=== PATIENT | male | born 1970 ===

== ENCOUNTER 2020-11-25 19:08 | Inpatient (IN) | payer OTHER ==
[~2020-11-25] VITALS: Ht 172.7 cm; Wt 109.2 kg
[2020-11-25 20:01] LABS: COVID AG,FIA SOURCE NASOPHARYNGEAL
[2020-11-25 20:59] LABS: BASOPHILS % (AUTO) 0.4 % (0.0-2.0); EOSINOPHILS % (AUTO) 0.3 % (1.0-6.0); HEMATOCRIT 52.6 % (41-53); HEMOGLOBIN 17.4 g/dL (13.5-17.5); LYMPHOCYTES # (AUTO) 1.1 K/uL (1.0-4.8); LYMPHOCYTES % (AUTO) 16.4 % (22.0-44.0); MEAN CORPUSCULAR HGB CONC 33.1 G/dL (31.0-37.0); MEAN CORPUSCULAR VOLUME 94 fL (80-100); MONOCYTES % (AUTO) 14.5 % (2.0-9.0); NEUTROPHILS # (AUTO) 4.6 K/uL (1.8-7.7); NEUTROPHILS % (AUTO) 68.4 % (40.0-70.0); PLATELET COUNT (AUTO) 233 K/uL (150-450); RED BLOOD CELL COUNT(AUTO) 5.61 MIL/uL (4.50-5.90); RED CELL DISTRIBUTION WIDTH 14.5 % (11.5-14.5)
[2020-11-25] MEDS ORDERED: MAGNESIUM HYDROXIDE SUSPENSION 30 ML UDCUP PO PRN (21:00)
[2020-11-25 21:10] LABS: ANION GAP 11 mmol/L (8-16); CALCIUM, TOTAL 8.8 mg/dL (8.8-10.5); CARBON DIOXIDE 30 mmol/L (22-29); CHLORIDE 97 mmol/L (98-107); CREATININE 1.22 mg/dL (0.60-1.30); GLOMERULAR FILTR. RATE CALC > 60 mL/min (>60); GLUCOSE,RANDOM 130 mg/dL (70-110); POTASSIUM 3.9 mmol/L (3.5-5.1); SODIUM SERUM 138 mmol/L (136-145); UREA NITROGEN, BLOOD 10 mg/dL (7-18)
[2020-11-25 21:12] LABS: D-DIMER 0.82 mg/L FEU (0.00-0.50); PROTHROMBIN TIME 10.9 SEC (9.4-11.6)
[2020-11-25 21:35] LABS: LACTIC ACID 3.8 mmol/L (0.4-2.0)
[2020-11-25 21:36] LABS: ALANINE AMINOTRANSFERASE 127 U/L (12-78); ALBUMIN 4.3 g/dL (3.4-5.0); ALKALINE PHOSPHATASE 117 U/L (46-116); ASPARTATE AMINOTRANSFERASE 79 U/L (15-37); BILIRUBIN,TOTAL 0.6 mg/dL (0.1-1.0); CREATINE KINASE, TOTAL ONLY 129 U/L (39-308); FERRITIN 757 ng/mL (26-388); LACTATE DEHYDROGENASE 188 U/L (85-227); PHOSPHORUS 3.8 mg/dL (2.5-4.9); TOTAL PROTEIN, SERUM 9.4 g/dL (6.4-8.2)
[2020-11-25 21:44] VITALS: BP 121/80
[2020-11-25] MEDS ORDERED: SODIUM CHLORIDE 0.9% 1,000 ML IV ONE (21:45)
[2020-11-25] MEDS: ACETAMINOPHEN 325 MG TABLET PO PRN (21:49)
[2020-11-25 22:10] LABS: ERYTHROCYTE SEDIMENTATION RATE 6 MM/HR (0-15)
[2020-11-25] MEDS: HEPARIN SODIUM,PORCINE 5,000 UNITS/ML VIAL SQ SCH (23:44)
[2020-11-26] MEDS: ACETAMINOPHEN 325 MG TABLET PO PRN ×3 (04:43→20:41)
[2020-11-26 05:14] VITALS: BP 147/93
[2020-11-26 08:23] VITALS: BP 158/92
[2020-11-26] MEDS: FAMOTIDINE 20 MG TABLET PO SCH (08:53)
[2020-11-26] MEDS: HEPARIN SODIUM,PORCINE 5,000 UNITS/ML VIAL SQ SCH ×3 (08:53→23:51)
[2020-11-26 09:49] LABS: APPEARANCE,URINE CLEAR (CLEAR); BILIRUBIN,URINE NEGATIVE (NEGATIVE); GLUCOSE, URINE (UA) NEGATIVE (NEGATIVE); KETONES,URINE TRACE mg/dL (NEGATIVE); LEUKOCYTE ESTERASE ,URINE NEGATIVE (NEGATIVE); NITRATE,URINE NEGATIVE (NEGATIVE); OCCULT BLOOD,URINE NEGATIVE (NEGATIVE); PROTEIN,URINE NEGATIVE (NEGATIVE)
[2020-11-26 09:52] LABS: BACTERIA,URINE None Seen /HPF (None Seen); RBC,URINE None Seen /HPF (0-2); WBC,URINE None Seen /HPF (0-5)
[2020-11-26] MEDS: AZITHROMYCIN 500 MG/NS 250 ML IV SCH (10:09)
[2020-11-26] MEDS ORDERED: SODIUM CHLORIDE 0.9% 500 ML IV ONE (10:12)
[2020-11-26] MEDS: CefTRIAXone 1 GM/DEXTROSE 50 ML IV SCH (11:04)
[2020-11-26 16:28] VITALS: BP 129/79
[2020-11-26 20:36] VITALS: BP 142/94
[2020-11-26 22:00] VITALS: BP 111/74
[2020-11-26 23:41] VITALS: BP 126/78
[2020-11-27] MEDS: ACETAMINOPHEN 325 MG TABLET PO PRN ×4 (00:08→21:07)
[2020-11-27 05:00] VITALS: BP 145/86
[2020-11-27 08:03] VITALS: BP 121/75
[2020-11-27 08:04] VITALS: BP 121/75
[2020-11-27] MEDS: FAMOTIDINE 20 MG TABLET PO SCH (08:47)
[2020-11-27] MEDS: HEPARIN SODIUM,PORCINE 5,000 UNITS/ML VIAL SQ SCH ×2 (08:47→16:04)
[2020-11-27] MEDS: AZITHROMYCIN 500 MG/NS 250 ML IV SCH (10:02)
[2020-11-27] MEDS: CefTRIAXone 1 GM/DEXTROSE 50 ML IV SCH (11:17)
[2020-11-27 11:58] LABS: BASOPHILS % (AUTO) 1.1 % (0.0-2.0); EOSINOPHILS % (AUTO) 0 % (1.0-6.0); HEMATOCRIT 46.1 % (41-53); HEMOGLOBIN 15.6 g/dL (13.5-17.5); LYMPHOCYTES # (AUTO) 0.8 K/uL (1.0-4.8); MEAN CORPUSCULAR HEMOGLOBIN 31.3 pg (26.0-34.0); MEAN CORPUSCULAR HGB CONC 33.9 G/dL (31.0-37.0); MEAN CORPUSCULAR VOLUME 92 fL (80-100); MONOCYTES # (AUTO) 0.6 K/uL (0.1-1.0); MONOCYTES % (AUTO) 11.8 % (2.0-9.0); NEUTROPHILS # (AUTO) 3.7 K/uL (1.8-7.7); NEUTROPHILS % (AUTO) 72.1 % (40.0-70.0); PLATELET COUNT (AUTO) 178 K/uL (150-450); RED CELL DISTRIBUTION WIDTH 13.7 % (11.5-14.5)
[2020-11-27 12:21] LABS: ALANINE AMINOTRANSFERASE 105 U/L (12-78); ALBUMIN 3.6 g/dL (3.4-5.0); ALKALINE PHOSPHATASE 88 U/L (46-116); ANION GAP 8 mmol/L (8-16); ASPARTATE AMINOTRANSFERASE 82 U/L (15-37); BILIRUBIN,TOTAL 0.4 mg/dL (0.1-1.0); C-REACTIVE PROTEIN QUANT 1.85 mg/dL (0.00-0.30); CALCIUM, TOTAL 8.2 mg/dL (8.8-10.5); CARBON DIOXIDE 27 mmol/L (22-29); CHLORIDE 100 mmol/L (98-107); CREATININE 0.96 mg/dL (0.60-1.30); GLOMERULAR FILTR. RATE CALC > 60 mL/min (>60); GLUCOSE,RANDOM 108 mg/dL (70-110); POTASSIUM 3.6 mmol/L (3.5-5.1); SODIUM SERUM 135 mmol/L (136-145); TOTAL PROTEIN, SERUM 7.4 g/dL (6.4-8.2); UREA NITROGEN, BLOOD 9 mg/dL (7-18)
[2020-11-27 14:37] LABS: FERRITIN 873 ng/mL (26-388)
[2020-11-27 14:55] LABS: INFLUENZA TYPE A NEGATIVE FOR TYPE A (NEGATIVE); INFLUENZA TYPE B NEGATIVE FOR TYPE B (NEGATIVE)
[2020-11-27 20:05] VITALS: BP 128/85
[2020-11-28] VITALS: BP 127/74
[2020-11-28] MEDS: HEPARIN SODIUM,PORCINE 5,000 UNITS/ML VIAL SQ SCH ×3 (00:24→16:50)
[2020-11-28] MEDS: ACETAMINOPHEN 325 MG TABLET PO PRN ×3 (00:24→20:39)
[2020-11-28 04:50] VITALS: BP 123/86
[2020-11-28 07:42] VITALS: BP 137/86
[2020-11-28] MEDS: AZITHROMYCIN 500 MG/NS 250 ML IV SCH (08:30)
[2020-11-28] MEDS: FAMOTIDINE 20 MG TABLET PO SCH (08:30)
[2020-11-28] MEDS: CefTRIAXone 1 GM/DEXTROSE 50 ML IV SCH (11:19)
[2020-11-28 20:15] VITALS: BP 135/73
[2020-11-29] VITALS (11 sets, daily range): BP systolic 117–137; BP diastolic 64–82
[2020-11-29] MEDS: ACETAMINOPHEN 325 MG TABLET PO PRN ×6 (00:32→22:57)
[2020-11-29] MEDS: HEPARIN SODIUM,PORCINE 5,000 UNITS/ML VIAL SQ SCH ×4 (00:32→22:57)
[2020-11-29 07:04] LABS: GLUCOMETER DEV NAME(LOC) 6N.1; GLUCOSE,POINT OF CARE 250 MG/DL (70-110)
[2020-11-29 07:16] LABS: ALANINE AMINOTRANSFERASE 95 U/L (12-78); ALBUMIN 3.6 g/dL (3.4-5.0); ALKALINE PHOSPHATASE 82 U/L (46-116); ANION GAP 6 mmol/L (8-16); ASPARTATE AMINOTRANSFERASE 84 U/L (15-37); BILIRUBIN,TOTAL 0.4 mg/dL (0.1-1.0); C-REACTIVE PROTEIN QUANT 2.76 mg/dL (0.00-0.30); CALCIUM, TOTAL 8.6 mg/dL (8.8-10.5); CARBON DIOXIDE 30 mmol/L (22-29); CHLORIDE 98 mmol/L (98-107); CREATININE 1.06 mg/dL (0.60-1.30); FERRITIN 1299 ng/mL (26-388); GLOMERULAR FILTR. RATE CALC > 60 mL/min (>60); GLUCOSE,RANDOM 114 mg/dL (70-110); POTASSIUM 4.5 mmol/L (3.5-5.1); SODIUM SERUM 134 mmol/L (136-145); TOTAL PROTEIN, SERUM 7.8 g/dL (6.4-8.2); UREA NITROGEN, BLOOD 11 mg/dL (7-18)
[2020-11-29] MEDS: FAMOTIDINE 20 MG TABLET PO SCH (10:12)
[2020-11-29] MEDS: AZITHROMYCIN 500 MG/NS 250 ML IV SCH (10:12)
[2020-11-29] MEDS: CefTRIAXone 1 GM/DEXTROSE 50 ML IV SCH (11:54)
[2020-11-29] MEDS ORDERED: REMDESIVIR 200 MG in SODIUM CHLORIDE 0.9% 250 ML IV ONE (15:30)
[2020-11-30] MEDS: ACETAMINOPHEN 325 MG TABLET PO PRN ×2 (04:03→16:58)
[2020-11-30 04:05] VITALS: BP 119/73
[2020-11-30 06:00] LABS: BASOPHILS % (AUTO) 0.2 % (0.0-2.0); EOSINOPHILS % (AUTO) 0 % (1.0-6.0); HEMATOCRIT 45.2 % (41-53); HEMOGLOBIN 15.4 g/dL (13.5-17.5); LYMPHOCYTES # (AUTO) 1.1 K/uL (1.0-4.8); LYMPHOCYTES % (AUTO) 11.7 % (22.0-44.0); MEAN CORPUSCULAR HEMOGLOBIN 31.1 pg (26.0-34.0); MEAN CORPUSCULAR HGB CONC 33.9 G/dL (31.0-37.0); MEAN CORPUSCULAR VOLUME 92 fL (80-100); MONOCYTES # (AUTO) 0.6 K/uL (0.1-1.0); MONOCYTES % (AUTO) 6.6 % (2.0-9.0); NEUTROPHILS # (AUTO) 7.4 K/uL (1.8-7.7); NEUTROPHILS % (AUTO) 81.5 % (40.0-70.0); PLATELET COUNT (AUTO) 193 K/uL (150-450); RED BLOOD CELL COUNT(AUTO) 4.94 MIL/uL (4.50-5.90); RED CELL DISTRIBUTION WIDTH 13.6 % (11.5-14.5)
[2020-11-30 07:21] VITALS: BP 98/70
[2020-11-30 07:53] LABS: ALANINE AMINOTRANSFERASE 75 U/L (12-78); ALBUMIN 3.2 g/dL (3.4-5.0); ALKALINE PHOSPHATASE 73 U/L (46-116); ANION GAP 8 mmol/L (8-16); ASPARTATE AMINOTRANSFERASE 70 U/L (15-37); BILIRUBIN,TOTAL 0.4 mg/dL (0.1-1.0); C-REACTIVE PROTEIN QUANT 7.55 mg/dL (0.00-0.30); CALCIUM, TOTAL 8.5 mg/dL (8.8-10.5); CARBON DIOXIDE 29 mmol/L (22-29); CHLORIDE 97 mmol/L (98-107); CREATININE 0.93 mg/dL (0.60-1.30); FERRITIN 1386 ng/mL (26-388); GLOMERULAR FILTR. RATE CALC > 60 mL/min (>60); GLUCOSE,RANDOM 118 mg/dL (70-110); POTASSIUM 3.9 mmol/L (3.5-5.1); SODIUM SERUM 134 mmol/L (136-145); TOTAL PROTEIN, SERUM 7.4 g/dL (6.4-8.2); UREA NITROGEN, BLOOD 8 mg/dL (7-18)
[2020-11-30] MEDS: HEPARIN SODIUM,PORCINE 5,000 UNITS/ML VIAL SQ SCH ×3 (08:32→23:52)
[2020-11-30] MEDS: FAMOTIDINE 20 MG TABLET PO SCH (08:32)
[2020-11-30] MEDS: AZITHROMYCIN 500 MG/NS 250 ML IV SCH (10:04)
[2020-11-30] MEDS ORDERED: SODIUM CHLORIDE 0.9% 1,000 ML IV ONE (10:30)
[2020-11-30] MEDS: CefTRIAXone 1 GM/DEXTROSE 50 ML IV SCH (11:13)
[2020-11-30] MEDS: DEXAMETHASONE SOD PHOS 4 MG/ML VIAL IVP SCH (15:07)
[2020-11-30] MEDS: REMDESIVIR 100 MG in SODIUM CHLORIDE 0.9% 250 ML IV SCH (15:23)
[2020-11-30] MEDS: LINEZOLID 600 MG/ISO-OSM 300 ML IV SCH (17:02)
[2020-11-30 19:40] VITALS: BP 115/76
[2020-11-30 23:52] VITALS: BP 108/77
[2020-12-01] MEDS ORDERED: SODIUM CHLORIDE 0.9% 500 ML IV ONE (04:28)
[2020-12-01] MEDS: LINEZOLID 600 MG/ISO-OSM 300 ML IV SCH ×2 (05:13→17:54)
[2020-12-01 05:30] VITALS: BP 113/63
[2020-12-01 06:07] LABS: BASOPHILS % (AUTO) 0.2 % (0.0-2.0); EOSINOPHILS % (AUTO) 0.1 % (1.0-6.0); HEMOGLOBIN 15.3 g/dL (13.5-17.5); LYMPHOCYTES # (AUTO) 0.5 K/uL (1.0-4.8); LYMPHOCYTES % (AUTO) 8.4 % (22.0-44.0); MEAN CORPUSCULAR HEMOGLOBIN 31.3 pg (26.0-34.0); MEAN CORPUSCULAR HGB CONC 34.1 G/dL (31.0-37.0); MEAN CORPUSCULAR VOLUME 92 fL (80-100); MONOCYTES # (AUTO) 0.6 K/uL (0.1-1.0); NEUTROPHILS # (AUTO) 4.6 K/uL (1.8-7.7); NEUTROPHILS % (AUTO) 81.3 % (40.0-70.0); PLATELET COUNT (AUTO) 221 K/uL (150-450); RED BLOOD CELL COUNT(AUTO) 4.89 MIL/uL (4.50-5.90); RED CELL DISTRIBUTION WIDTH 13.5 % (11.5-14.5)
[2020-12-01 07:27] VITALS: BP 113/69
[2020-12-01 07:40] LABS: ALANINE AMINOTRANSFERASE 63 U/L (12-78); ALBUMIN 3.1 g/dL (3.4-5.0); ALKALINE PHOSPHATASE 70 U/L (46-116); ANION GAP 9 mmol/L (8-16); ASPARTATE AMINOTRANSFERASE 48 U/L (15-37); BILIRUBIN,TOTAL 0.3 mg/dL (0.1-1.0); C-REACTIVE PROTEIN QUANT 7.73 mg/dL (0.00-0.30); CALCIUM, TOTAL 8.8 mg/dL (8.8-10.5); CARBON DIOXIDE 28 mmol/L (22-29); CHLORIDE 101 mmol/L (98-107); CREATININE 0.83 mg/dL (0.60-1.30); FERRITIN 1446 ng/mL (26-388); GLOMERULAR FILTR. RATE CALC > 60 mL/min (>60); GLUCOSE,RANDOM 136 mg/dL (70-110); POTASSIUM 4.2 mmol/L (3.5-5.1); SODIUM SERUM 138 mmol/L (136-145); TOTAL PROTEIN, SERUM 7.3 g/dL (6.4-8.2); UREA NITROGEN, BLOOD 11 mg/dL (7-18)
[2020-12-01] MEDS: DEXAMETHASONE SOD PHOS 4 MG/ML VIAL IVP SCH (08:18)
[2020-12-01] MEDS: HEPARIN SODIUM,PORCINE 5,000 UNITS/ML VIAL SQ SCH ×2 (08:19→15:28)
[2020-12-01] MEDS: FAMOTIDINE 20 MG TABLET PO SCH (08:19)
[2020-12-01] MEDS: REMDESIVIR 100 MG in SODIUM CHLORIDE 0.9% 250 ML IV SCH (15:28)
[2020-12-01 19:49] VITALS: BP 123/83
[2020-12-02 00:08] VITALS: BP 125/70
[2020-12-02] MEDS: HEPARIN SODIUM,PORCINE 5,000 UNITS/ML VIAL SQ SCH ×3 (01:00→15:13)
[2020-12-02 04:51] VITALS: BP 121/67
[2020-12-02] MEDS: LINEZOLID 600 MG/ISO-OSM 300 ML IV SCH ×2 (06:09→17:02)
[2020-12-02 07:23] LABS: ALANINE AMINOTRANSFERASE 59 U/L (12-78); ALBUMIN 2.8 g/dL (3.4-5.0); ALKALINE PHOSPHATASE 67 U/L (46-116); ANION GAP 3 mmol/L (8-16); ASPARTATE AMINOTRANSFERASE 40 U/L (15-37); BILIRUBIN,TOTAL 0.3 mg/dL (0.1-1.0); C-REACTIVE PROTEIN QUANT 2.67 mg/dL (0.00-0.30); CALCIUM, TOTAL 8.4 mg/dL (8.8-10.5); CARBON DIOXIDE 30 mmol/L (22-29); CHLORIDE 104 mmol/L (98-107); CREATININE 0.88 mg/dL (0.60-1.30); FERRITIN 1447 ng/mL (26-388); GLOMERULAR FILTR. RATE CALC > 60 mL/min (>60); GLUCOSE,RANDOM 123 mg/dL (70-110); POTASSIUM 4.2 mmol/L (3.5-5.1); SODIUM SERUM 137 mmol/L (136-145); TOTAL PROTEIN, SERUM 7.1 g/dL (6.4-8.2); UREA NITROGEN, BLOOD 16 mg/dL (7-18)
[2020-12-02 07:54] VITALS: BP 113/63
[2020-12-02] MEDS: FAMOTIDINE 20 MG TABLET PO SCH (08:07)
[2020-12-02] MEDS: DEXAMETHASONE SOD PHOS 4 MG/ML VIAL IVP SCH (08:08)
[2020-12-02] MEDS ORDERED: ETHYL ALCOHOL 62% ANTISEPTIC NASAL INHALANT 0.6 ML AMPUL NASAL SCH ×2 (09:00)
[2020-12-02] MEDS: REMDESIVIR 100 MG in SODIUM CHLORIDE 0.9% 250 ML IV SCH (15:25)
[2020-12-02 20:29] VITALS: BP 131/77
[2020-12-03] MEDS: HEPARIN SODIUM,PORCINE 5,000 UNITS/ML VIAL SQ SCH ×4 (00:21→23:53)
[2020-12-03 05:32] VITALS: BP 129/97
[2020-12-03 06:04] LABS: BASOPHILS % (AUTO) 0.4 % (0.0-2.0); EOSINOPHILS % (AUTO) 0 % (1.0-6.0); HEMATOCRIT 45.8 % (41-53); HEMOGLOBIN 15.5 g/dL (13.5-17.5); LYMPHOCYTES # (AUTO) 0.8 K/uL (1.0-4.8); LYMPHOCYTES % (AUTO) 10.3 % (22.0-44.0); MEAN CORPUSCULAR HGB CONC 33.8 G/dL (31.0-37.0); MEAN CORPUSCULAR VOLUME 92 fL (80-100); MONOCYTES % (AUTO) 12.2 % (2.0-9.0); NEUTROPHILS % (AUTO) 77.1 % (40.0-70.0); PLATELET COUNT (AUTO) 300 K/uL (150-450); RED BLOOD CELL COUNT(AUTO) 4.98 MIL/uL (4.50-5.90); RED CELL DISTRIBUTION WIDTH 13.8 % (11.5-14.5)
[2020-12-03] MEDS: LINEZOLID 600 MG/ISO-OSM 300 ML IV SCH ×2 (06:08→17:35)
[2020-12-03 07:33] LABS: ALANINE AMINOTRANSFERASE 71 U/L (12-78); ALBUMIN 2.8 g/dL (3.4-5.0); ALKALINE PHOSPHATASE 68 U/L (46-116); ANION GAP 3 mmol/L (8-16); ASPARTATE AMINOTRANSFERASE 54 U/L (15-37); BILIRUBIN,TOTAL 0.4 mg/dL (0.1-1.0); CALCIUM, TOTAL 8.5 mg/dL (8.8-10.5); CARBON DIOXIDE 30 mmol/L (22-29); CHLORIDE 105 mmol/L (98-107); FERRITIN 1357 ng/mL (26-388); GLOMERULAR FILTR. RATE CALC > 60 mL/min (>60); GLUCOSE,RANDOM 113 mg/dL (70-110); SODIUM SERUM 138 mmol/L (136-145); TOTAL PROTEIN, SERUM 7.1 g/dL (6.4-8.2); UREA NITROGEN, BLOOD 19 mg/dL (7-18)
[2020-12-03 07:39] VITALS: BP 120/79
[2020-12-03] MEDS: FAMOTIDINE 20 MG TABLET PO SCH (08:59)
[2020-12-03] MEDS: DEXAMETHASONE SOD PHOS 4 MG/ML VIAL IVP SCH (09:00)
[2020-12-03] MEDS: REMDESIVIR 100 MG in SODIUM CHLORIDE 0.9% 250 ML IV SCH (16:18)
[2020-12-03 20:51] VITALS: BP 128/85
[2020-12-04 00:58] VITALS: BP 138/80
[2020-12-04] MEDS: LINEZOLID 600 MG/ISO-OSM 300 ML IV SCH ×2 (04:28→16:00)
[2020-12-04 05:42] VITALS: BP 130/89
[2020-12-04 08:11] VITALS: BP 104/67
[2020-12-04] MEDS: DEXAMETHASONE SOD PHOS 4 MG/ML VIAL IVP SCH (08:49)
[2020-12-04] MEDS: HEPARIN SODIUM,PORCINE 5,000 UNITS/ML VIAL SQ SCH ×3 (08:49→23:15)
[2020-12-04] MEDS: FAMOTIDINE 20 MG TABLET PO SCH (08:50)
[2020-12-04 20:10] VITALS: BP 117/76
[2020-12-04] MEDS: GuaiFENesin SR 600 MG ER TABLET PO SCH (20:19)
[2020-12-04] MEDS: BENZOCAINE/MENTHOL LOZENGE PO PRN (23:15)
[2020-12-05 05:40] VITALS: BP 111/60
[2020-12-05] MEDS: BENZOCAINE/MENTHOL LOZENGE PO PRN ×3 (05:43→16:12)
[2020-12-05] MEDS: LINEZOLID 600 MG/ISO-OSM 300 ML IV SCH (05:45)
[2020-12-05 07:17] LABS: ALANINE AMINOTRANSFERASE 92 U/L (12-78); ALBUMIN 2.9 g/dL (3.4-5.0); ALKALINE PHOSPHATASE 67 U/L (46-116); ANION GAP 4 mmol/L (8-16); ASPARTATE AMINOTRANSFERASE 50 U/L (15-37); BILIRUBIN,TOTAL 0.5 mg/dL (0.1-1.0); C-REACTIVE PROTEIN QUANT 0.31 mg/dL (0.00-0.30); CALCIUM, TOTAL 8.6 mg/dL (8.8-10.5); CARBON DIOXIDE 30 mmol/L (22-29); CHLORIDE 104 mmol/L (98-107); CREATININE 0.95 mg/dL (0.60-1.30); FERRITIN 1357 ng/mL (26-388); GLOMERULAR FILTR. RATE CALC > 60 mL/min (>60); GLUCOSE,RANDOM 102 mg/dL (70-110); POTASSIUM 4.6 mmol/L (3.5-5.1); SODIUM SERUM 138 mmol/L (136-145); UREA NITROGEN, BLOOD 17 mg/dL (7-18)
[2020-12-05 08:12] VITALS: BP 108/77
[2020-12-05] MEDS: HEPARIN SODIUM,PORCINE 5,000 UNITS/ML VIAL SQ SCH ×2 (09:09→16:12)
[2020-12-05] MEDS: DEXAMETHASONE SOD PHOS 4 MG/ML VIAL IVP SCH (09:09)
[2020-12-05] MEDS: FAMOTIDINE 20 MG TABLET PO SCH (09:09)
[2020-12-05] MEDS: GuaiFENesin SR 600 MG ER TABLET PO SCH ×2 (09:09→21:56)
[2020-12-05 20:19] VITALS: BP 110/70
[2020-12-06] MEDS: HEPARIN SODIUM,PORCINE 5,000 UNITS/ML VIAL SQ SCH ×4 (01:19→22:25)
[2020-12-06] MEDS: BENZOCAINE/MENTHOL LOZENGE PO PRN ×3 (01:20→22:25)
[2020-12-06 03:57] VITALS: BP 115/77
[2020-12-06 08:02] VITALS: BP 117/71
[2020-12-06] MEDS: DEXAMETHASONE 4 MG TABLET PO SCH (08:40)
[2020-12-06] MEDS: GuaiFENesin SR 600 MG ER TABLET PO SCH ×2 (08:40→22:25)
[2020-12-06] MEDS: FAMOTIDINE 20 MG TABLET PO SCH (08:40)
[2020-12-06 19:50] VITALS: BP 116/90
[2020-12-07 05:30] VITALS: BP 119/70
[2020-12-07 08:14] VITALS: BP 116/73
[2020-12-07] MEDS: HEPARIN SODIUM,PORCINE 5,000 UNITS/ML VIAL SQ SCH ×2 (09:16→16:07)
[2020-12-07] MEDS: DEXAMETHASONE 4 MG TABLET PO SCH (09:16)
[2020-12-07] MEDS: BENZOCAINE/MENTHOL LOZENGE PO PRN ×2 (09:17→16:07)
[2020-12-07] MEDS: FAMOTIDINE 20 MG TABLET PO SCH (09:17)
[2020-12-07] MEDS: GuaiFENesin SR 600 MG ER TABLET PO SCH (09:17)
[2020-12-07] MEDS ORDERED: DEXA4 PO (15:53)
[2020-12-07] MEDS ORDERED: GUAIF600 PO (15:54)
== END 2020-12-07 16:35 | DRG 871 ==
LOC: EDSEX 19:08 → EMS 19:08 → 6S 21:00 → EMS 21:19
PROVIDERS: ADMIT Internal Medicine; ATTEND Internal Medicine
PROC: XW033E5 Introduction of Remdesivir Anti-infective into Peripheral Vein, Percutaneous Approach, New Technology Group 5 (ICD-10-PCS; principal; 2020-11-29)
DX: A41.9 Sepsis, unspecified organism (principal); U07.1 COVID-19; J12.82 Pneumonia due to coronavirus disease 2019; J15.212 Pneumonia due to Methicillin resistant Staphylococcus aureus; E66.9 Obesity, unspecified; D72.810 Lymphocytopenia; R19.7 Diarrhea, unspecified; R51.9 Headache, unspecified; R74.01 Elevation of levels of liver transaminase levels; R79.82 Elevated C-reactive protein (CRP); Z68.36 Body mass index [BMI] 36.0-36.9, adult
CPT/HCPCS: 71045; 76700; 80053; 80074; 81001; 82550; 82728; 82962; 83605; 83615; 83735; 84100; 84145; 84484; 85025; 85379; 85610; 85651; 85730; 86140; 87040; 87070; 87077; 87186; 87205; 87430; 87804; 99285; A9575; J0456; J0696; J1100; J1644; J2020; J7030; J7040; J7050; J8540; 36415-L1; 36415-TC; U0003